=== PATIENT | female | born 1975 | race Caucasian/White ===

== ENCOUNTER 2021-04-06 01:07 | Emergency (ER) | payer OTHER ==
[2021-04-06 01:49] LABS: HEMOGLOBIN 13.7 gm/dl (12.3-15.3); RED BLOOD COUNT 4.76 M/UL (4.00-5.10); WHITE BLOOD COUNT 10.2 K/UL (4.5-11.0)
[2021-04-06 02:27] LABS: BUN/CREATININE RATIO 27 (0-10)
[2021-04-06] MEDS ORDERED: ASPIRIN CHEWABL81 MG PO (03:48)
== END 2021-04-06 04:34 | disposition home or self-care (01) ==
LOC: ER1 01:07
PROVIDERS: Physician Assistant
DX: U07.1 COVID-19 (principal); I10 Essential (primary) hypertension; E11.43 Type 2 diabetes mellitus with diabetic autonomic (poly)neuropathy; K31.84 Gastroparesis; Z88.2 Allergy status to sulfonamides
CPT/HCPCS: 0240U; 71045; 80053; 82009; 82550; 82553; 82800; 83605; 83690; 83735; 83874; 83880; 84484; 85025; 85379; 85610; 85730; 93005; 99284